=== PATIENT | female | born 1980 | race African-American/Black ===

== ENCOUNTER 2023-09-03 10:21 | Day surgery (SDC) | payer OTHER ==
[~2023-09-03 10:21] MED LIST: COLACE100 MG PO; FLAGYL500 MG PO; FLEXERIL PO; MULT VITAMI1 OR; NO; OMEPRAZOLE DR40 MG PO; ULTRAM50 M1 PO
[2023-09-03 14:50] VITALS: BP 117/81
== END 2023-09-03 13:50 | disposition home or self-care (01) | DRG 951 ==
LOC: ENDO 10:21 → ORM 12:35 → ENDO 12:50 → ORM 14:15
PROVIDERS: ATTEND Internal Medicine Gastroenterology
PROC: 0DJD8ZZ Inspection of Lower Intestinal Tract, Via Natural or Artificial Opening Endoscopic (ICD-10-PCS; principal; 2023-09-03)
PROC: 0DB98ZX Excision of Duodenum, Via Natural or Artificial Opening Endoscopic, Diagnostic (ICD-10-PCS; 2023-09-03)
PROC: 0DB78ZX Excision of Stomach, Pylorus, Via Natural or Artificial Opening Endoscopic, Diagnostic (ICD-10-PCS; 2023-09-03)
PROC: 0DB48ZX Excision of Esophagogastric Junction, Via Natural or Artificial Opening Endoscopic, Diagnostic (ICD-10-PCS; 2023-09-03)
DX: Z12.11 Encounter for screening for malignant neoplasm of colon (principal); D64.9 Anemia, unspecified; K29.70 Gastritis, unspecified, without bleeding; B96.81 Helicobacter pylori [H. pylori] as the cause of diseases classified elsewhere; K21.9 Gastro-esophageal reflux disease without esophagitis; Z80.0 Family history of malignant neoplasm of digestive organs; K64.8 Other hemorrhoids